=== PATIENT | male | born 1970 | race Caucasian/White ===

== ENCOUNTER 2017-10-10 11:40 | Emergency (ER) | payer OTHER ==
[~2017-10-10] VITALS: Ht 177.8 cm; Wt 99.8 kg
== END 2017-10-10 13:43 | disposition home or self-care (01) ==
LOC: ER 11:40
DX: S61.213A Laceration without foreign body of left middle finger without damage to nail, initial encounter (principal); W45.8XXA Other foreign body or object entering through skin, initial encounter; Y93.89 Activity, other specified; Y92.69 Other specified industrial and construction area as the place of occurrence of the external cause; Y99.8 Other external cause status

== ENCOUNTER 2017-10-20 09:28 | Emergency (ER) | payer OTHER ==
[~2017-10-20] VITALS: Ht 175.3 cm; Wt 90.7 kg
== END 2017-10-20 10:01 | disposition home or self-care (01) ==
LOC: ER 09:28
DX: Z48.02 Encounter for removal of sutures (principal)